=== PATIENT | female | born 1990 | race Caucasian/White ===

== ENCOUNTER → 2018-05-17 16:38 | Outpatient (CLI) | payer BC, SELFPAY ==
[2018-05-25 12:26] LABS: HPV HC, High Risk Negative (Negative)
[2018-05-25 12:30] LABS: HPV Reflexed? YES, CHARGE PATIENT
== END ==
PROVIDERS: Family Provider Family Medicine; PCP Family Medicine; Referring Provider Obstetrics & Gynecology; Visit Provider Obstetrics & Gynecology
DX: Z12.4 Encounter for screening for malignant neoplasm of cervix (principal)
CPT/HCPCS: 87624; 88175; G0145

== ENCOUNTER → 2019-05-16 14:25 | Outpatient (CLI) | payer BC, SELFPAY ==
[2019-05-20 09:07] LABS: Age Gdln ACOG Testing 30-65 (.)
[2019-05-20 15:43] LABS: HPV APTIMA, High Risk Negative (Negative); HPV Reflexed? YES, CHARGE PATIENT
== END ==
PROVIDERS: Visit Provider Advanced Practice Midwife
DX: Z12.4 Encounter for screening for malignant neoplasm of cervix (principal)
CPT/HCPCS: 87624; 88175; G0145